=== PATIENT | female | born 1945 | race Caucasian/White ===

== ENCOUNTER 2017-05-07 10:05 | Day surgery (SDC) | payer OTHER, BC ==
[~2017-05-07] VITALS: Ht 154.9 cm; Wt 68.0 kg
[~2017-05-07 10:05] MED LIST: AFRIN,GENASAL D15 ML BOTH NARES; ALLEGRA-D 241 TABLET PO; CENTRUM SILVER1 EAC4 PO; CITRACAL + D C1 EACH PO; CRESTOR10 MG PO; ESTRADIOL2 MG PO; HYDROCODON-ACE1 EAC9 PO; LIDODERM 5% P1 PATCH TD; METOPROLOL SUCC50 MG PO; MS CONTIN,ORAMO15 M1 PO; NASONEX17 GM BOTH NARES; OCUVITE TABLET1 EACH PO; PROBIOTIC250 MG PO; PROGESTERONE100 MG PO; PROTONIX40 MG PO; SALINE NASAL SP45 ML BOTH NARES; SPIRONOLACTONE50 MG PO; TOPROL XL100 MG PO; VOLTAREN 1% GE100 GM TP; XYLOCAINE VISC100 ML MM
[2017-05-07 10:51] VITALS: BP 123/73
[2017-05-07 18:15] VITALS: BP 158/70
[2017-05-07 19:07] VITALS: BP 117/57
== END 2017-05-07 19:15 | disposition home or self-care (01) ==
LOC: SDC 10:05
DX: Z42.1 Encounter for breast reconstruction following mastectomy (principal); Z90.13 Acquired absence of bilateral breasts and nipples; I10 Essential (primary) hypertension; K21.9 Gastro-esophageal reflux disease without esophagitis; E78.5 Hyperlipidemia, unspecified; Z85.3 Personal history of malignant neoplasm of breast; Z85.528 Personal history of other malignant neoplasm of kidney; Z82.49 Family history of ischemic heart disease and other diseases of the circulatory system
CPT/HCPCS: C1789; J0131; J0690; J1100; J1170; J1885; J2250; J2405; J2550; J3010